=== PATIENT | female | born 1955 | race African-American/Black ===

== ENCOUNTER 2017-02-07 05:53 | Day surgery (SDC) | payer OTHER ==
[2017-02-01 09:41] LABS: HEMATOCRIT 40.2 % (36.0-48.0); HEMOGLOBIN 13.5 g/dL (12.0-16.0)
[2017-02-01 09:52] LABS: BUN (BLOOD UREA NITROGEN) 17 MG/DL (6-23); CALCIUM, SERUM 9.7 MG/DL (8.5-10.4); CHLORIDE, SERUM 106 MMOL/L (96-112); CO2 (CARBON DIOXIDE) 27 MMOL/L (24-34); CREATININE 1.03 MG/DL (0.55-1.02); GFR AFRICAN AMERICAN 68 ML/MIN (>=60); GFR NON AFRICAN AMERICAN 59 ML/MIN (>=60); GLUCOSE, SERUM 99 MG/DL (60-99); POTASSIUM, SERUM 4.1 MMOL/L (3.5-5.3); SODIUM, SERUM 140 MMOL/L (135-148)
--- NOTE | ~2017-02-07 | OP ---
Record Of Operation [facility] [address] [place]. [address] NAME: CHANELLE LORENZO : 57 STATUS : [facility]#: [id number] AGE: 61 ADM/REG DATE : 02/07/17 MR#: [id number] REPORT SERV DATE: 02/08/17 DICTATED BY: BRITTNY RUIZ DATE: 02/07/17 REPORT STATUS : Draft TRANSCRIBED BY: MODL DATE: 02/07/17 DATE OF PROCEDURE: 02/07/2017 PREOPERATIVE DIAGNOSIS: Left chronic submandibular sialadenitis. POSTOPERATIVE DIAGNOSIS: Left chronic submandibular sialadenitis. PROCEDURE: Left submandibular gland excision. SURGEON: Brittny Ruiz M.D. ANESTHESIA: General. COMPLICATIONS: None. COUNTS: All counts were correct following the procedure. ESTIMATED BLOOD LOSS: 5 mL. PREOPERATIVE INFORMED CONSENT: We discussed the risks and benefits of the surgery to include but limited to bleeding infection, possible cranial nerve injury resulting in temporary or permanent deficits, possible postoperative salivary fistula. She understands the risks and benefits of the surgery and consent is on chart. PROCEDURE IN DETAIL: The patient was brought to the operative suite, and placed on the operating room table in the supine position. General endotracheal anesthesia was initiated without incident. The left neck was cleaned, prepped and draped in the usual sterile fashion. Following this, a curvilinear incision was marked out two fingerbreadths below the lower border of the mandible. Following this, the incision was injected using 5 mL of 1% lidocaine and 1:100,000 epinephrine. A 15 blade scalpel was used to make incision down through the platysmal layer. A short platysmal flap was raised down to the inferior border of the submandibular gland and then dissecting on the capsule of the gland taking care to avoid injury to the marginal mandibular nerve, and the submandibular gland was carefully dissected out from the surrounding tissues dividing the feeding vessels using bipolar cautery and Harmonic scalpel. Anteriorly, the mylohyoid muscle was skeletonized using dissection with the Harmonic scalpel. Posteriorly, the facial artery was identified and dissected out to its terminal branches which were divided using the Harmonic scalpel and ligated using a hemostat and 2-0 silk ligature. Anteriorly, on the floor of the submandibular triangle, the hypoglossal nerve as well as the lingual nerve were identified as well as the submandibular duct, these were all dissected away from the vital structures, and then the submandibular ganglion was divided and tied off using 3-0 silk ligature. The submandibular duct was dissected out, doubly clamped with hemostats, divided and ligated using silk stick-tie. The submandibular gland was removed en bloc, and sent for permanent pathology. The wound was copiously irrigated with sterile saline, and the wound was closed in layers using 3-0 Vicryl following 4-0 Prolene subcuticular closure followed by benzoin, Steri-Strips, Telfa, and Tegaderm dressing. Record Of Operation [facility] [address] [place]. [address] NAME: CHANELLE LORENZO : 57 STATUS : [facility]#: [id number] AGE: 61 ADM/REG DATE : 02/07/17 MR#: [id number] REPORT SERV DATE: 02/08/17 DICTATED BY: BRITTNY RUIZ DATE: 02/07/17 REPORT STATUS : Draft TRANSCRIBED BY: MARIAM DATE: 02/07/17 ATUL/MARIAM Brittny Ruiz M.D. / [id number] CC: Adenike River MD
[~2017-02-07 05:53] MED LIST: AMB10 PO; BEN25 PO; PRILOSEC OTC20 MG PO; PROAIR HFA INH; SYMBICORT 160/41 INH INH; SYN075 PO; VITC500 PO; X5 PO; ZESTORETIC PO
== END 2017-02-07 15:18 | disposition home or self-care (01) ==
LOC: SDC 05:53
PROVIDERS: Otolaryngology
PROC: 0CBH0ZZ Excision of Left Submaxillary Gland, Open Approach (ICD-10-PCS; principal; 2017-02-07 07:15)
DX: K11.23 Chronic sialoadenitis (principal); I10 Essential (primary) hypertension; I49.9 Cardiac arrhythmia, unspecified; J44.9 Chronic obstructive pulmonary disease, unspecified; K21.9 Gastro-esophageal reflux disease without esophagitis; E03.9 Hypothyroidism, unspecified; D64.9 Anemia, unspecified; Z79.899 Other long term (current) drug therapy
CPT/HCPCS: 80048; 85014; 85018; 88307; 93005; 94640; A9270-GY; J0690; J2250; J2270; J2405; J2710; J3010